=== PATIENT | male | born 1985 | race Two or more races ===

== ENCOUNTER 2024-01-12 08:46 | Emergency (ER) | payer OTHER ==
[~2024-01-12] VITALS: Ht 172.7 cm; Wt 85.7 kg
[2024-01-12] MEDS ORDERED: 0.9 % SODIUM CHLORIDE 200 ML IV STA (09:14)
[2024-01-12] MEDS ORDERED: FAMOTIDINE/PF 20 MG/2 ML VIAL IV PUSH STA (09:15)
[2024-01-12] MEDS ORDERED: LACTOBACILLUS ACIDOPHILUS 1 CAP CAP PO STA (09:15)
[2024-01-12 09:41] LABS: HEMATOCRIT 44.1 % (39.0-48.0); HEMOGLOBIN 15.4 g/dL (13-16.00); MEAN CELL VOLUME 84.7 fL (80.0-100.00); MEAN CORPUSCULAR HEMOGLOBIN 29.6 pg (27.00-32.0); PLATELET COUNT 245 K/uL (150-450); RED CELL DISTRIBUTION WIDTH 14.3 % (11.5-14.5)
[2024-01-12 11:11] LABS: ALBUMIN 3.6 gm/dL (3.4-5.0); BILIRUBIN TOTAL 0.37 mg/dL (0.3-1.2); CALCIUM 9.1 mg/dL (8.5-10.1); CREATININE SERUM 0.87 mg/dL (0.70-1.30); GFR 99.29; GLOBULINA 3.4 G/DL (2.4-3.5); POTASSIUM 4.02 mEq/L (3.5-5.1)
== END 2024-01-12 11:59 | disposition home or self-care (01) ==
LOC: ER 08:47
PROVIDERS: General Practice
DX: R19.7 Diarrhea, unspecified (principal); R10.84 Generalized abdominal pain